=== PATIENT | male | born 1985 | race African-American/Black ===

== ENCOUNTER 2017-02-14 10:19 | Emergency (ER) | payer OTHER ==
--- NOTE | 2017-02-14 10:36 | ER Document Report ---
ED Medical Screen (RME) - General Chief Complaint: Chest Pain Stated Complaint: CHEST PAIN Time Seen by Provider: 02/14/17 10:35 Notes: Patient states he has had some intermittent left-sided chest pain. He states currently he does not have any chest pain. He states he does have some occasional altered sensations in the left arm. He denies any chronic medical conditions. No surgeries. TRAVEL OUTSIDE OF THE [place] IN LAST 30 DAYS: No - Related Data Allergies/Adverse Reactions: No Known Allergies Allergy (Verified 03/25/16 14:45) Past Medical History Renal/ Medical History: Denies: Hx Peritoneal Dialysis Musculoskeltal Medical History: Reports Hx Musculoskeletal Deformity, Reports Hx Musculoskeletal Trauma Psychiatric Medical History: Reports: Hx Anxiety, Hx Depression - Immunizations Immunizations up to date: Yes Hx Diphtheria, Pertussis, Tetanus Vaccination: Yes - 2014 Physical Exam - Vital signs Vitals: Temp Pulse Resp BP Pulse Ox 98.0 F 67 16 143/89 H 98 02/14/17 10:26 02/14/17 10:26 02/14/17 10:26 02/14/17 10:26 02/14/17 10:26 Course - Vital Signs Vital signs: Temp Pulse Resp BP Pulse Ox 98.0 F 67 16 143/89 H 98 02/14/17 10:26 02/14/17 10:26 02/14/17 10:26 02/14/17 10:26 02/14/17 10:26
[2017-02-14 11:01] LABS: ABSOLUTE EOSINOPHILS # (AUTO) 0.3 10^3/uL (0.0-0.6); ABSOLUTE LYMPHOCYTES (AUTO) 1.9 10^3/uL (0.5-4.7); ABSOLUTE MONOCYTES (AUTO) 0.5 10^3/uL (0.1-1.4); ABSOLUTE NEUT (AUTO) 3.8 10^3/uL (1.7-8.2); BASOPHILS % (AUTO) 0.6 % (0-2); EOSINOPHILS % (AUTO) 5.2 % (0-6); HEMATOCRIT 41.4 % (37.9-51.0); HEMOGLOBIN 14.5 g/dL (13.5-17.0); HGB HCT DIFFERENCE 2.1; LYMPHOCYTES % (AUTO) 28.3 % (13-45); MEAN CORPUSCULAR HEMOGLOBIN 30.4 pg (27.0-33.4); MEAN CORPUSCULAR HGB CONC 35.1 g/dL (32.0-36.0); MEAN CORPUSCULAR VOLUME 87 fl (80-97); MONOCYTES % (AUTO) 7.8 % (3-13); RED BLOOD COUNT 4.79 10^6/uL (4.35-5.55); RED CELL DISTRIBUTION WIDTH 13.5 % (11.5-14.0); SEGMENTED NEUTROPHILS % (AUTO) 58.1 % (42-78); WHITE BLOOD COUNT 6.6 10^3/uL (4.0-10.5)
[2017-02-14 11:26] LABS: ALANINE AMINOTRANSFERASE 42 U/L (21-72); ALBUMIN 4.3 g/dL (3.5-5.0); ALKALINE PHOSPHATASE 72 U/L (38-126); ANION GAP 11 (5-19); ASPARTATE AMINO TRANSFERASE 24 U/L (17-59); BILIRUBIN,DIRECT 0.2 mg/dL (0.0-0.4); BILIRUBIN,TOTAL 0.4 mg/dL (0.2-1.3); BLOOD UREA NITROGEN 17 mg/dL (7-20); CALCIUM 9.4 mg/dL (8.4-10.2); CARBON DIOXIDE 26 mmol/L (22-30); CHLORIDE 106 mmol/L (98-107); CREATININE RESULT 1.04 mg/dL (0.52-1.25); GLUCOSE 91 mg/dL (75-110); POTASSIUM 4.3 mmol/L (3.6-5.0); SODIUM 142.8 mmol/L (137-145); TOTAL PROTEIN 7.2 g/dL (6.3-8.2)
--- NOTE | 2017-02-14 11:37 | ER Document Report ---
ED General - General Mode of Arrival: Ambulatory Information source: Patient TRAVEL OUTSIDE OF THE [place] IN LAST 30 DAYS: No <ADA AQUINO - Last Filed: 02/14/17 11:32> <RIGO HANCOCK - Last Filed: 02/14/17 13:44> - General Chief Complaint: Chest Pain Stated Complaint: CHEST PAIN Time Seen by Provider: 02/14/17 10:35 Notes: Patient is a 31-year-old male who presents to the emergency department today with complaints of reproducible chest wall pain. Patient states he has been having this pain intermittently for the last month or two. Patient states it sometimes wakes him up from sleep. Patient states when the pain sets in, it "locks his body up" and he states that he is "unable to move, he feels frozen". Patient denies any precipitating factors. Patient denies nausea with this pain. (ADA AQUINO) - Related Data Allergies/Adverse Reactions: No Known Allergies Allergy (Verified 03/25/16 14:45) Past Medical History - General Information source: Patient, [facility] Records - Social History Smoking Status: Current Every Day Smoker Cigarette use (# per day): Yes Frequency of alcohol use: Occasional Drug Abuse: None Lives with: Family Family History: Malignancy Patient has suicidal ideation: No Patient has homicidal ideation: No Musculoskeltal Medical History: Reports Hx Musculoskeletal Deformity, Reports Hx Musculoskeletal Trauma Psychiatric Medical History: Reports: Hx Anxiety, Hx Depression Surgical Hx: Negative - Immunizations Immunizations up to date: Yes Hx Diphtheria, Pertussis, Tetanus Vaccination: Yes - 2014 <ADA AQUINO - Last Filed: 02/14/17 11:32> Review of Systems - Review of Systems Constitutional: No symptoms reported EENT: No symptoms reported Cardiovascular: See HPI, Chest pain - reproducible Respiratory: No symptoms reported Gastrointestinal: denies: Nausea Genitourinary: No symptoms reported Male Genitourinary: No symptoms reported Musculoskeletal: No symptoms reported Skin: No symptoms reported Hematologic/Lymphatic: No symptoms reported Neurological/Psychological: No symptoms reported -: Yes All other systems reviewed and negative <ADA AQUINO - Last Filed: 02/14/17 11:32> Physical Exam <ADA AQUINO - Last Filed: 02/14/17 11:32> <RIGO HANCOCK - Last Filed: 02/14/17 13:44> - Vital signs Vitals: Temp Pulse Resp BP Pulse Ox 98.0 F 67 16 143/89 H 98 02/14/17 10:26 02/14/17 10:26 02/14/17 10:26 02/14/17 10:26 02/14/17 10:26 - Notes Notes: Physical Exam: General: Alert, appears well. HEENT: Normocephalic. Atraumatic. PERRL. Extraocular movements intact. Oropharynx clear. Neck: Supple. Non-tender. Respiratory: No respiratory distress. Reproducible chest wall tenderness with palpation. Clear and equal breath sounds bilaterally. Cardiovascular: Regular rate and rhythm. Abdominal: Normal Inspection. Non-tender. No distension. Normal Bowel Sounds. Back: Non-tender. No deformity or step off. Extremities: Moves all four extremities. Musculoskeletal: Left trapezius and posterior cervical musculature tenderness with palpation. Left deltoid tenderness to palpation. Left pectoralis musculature tenderness to palpation. Left anterior lateral rib tenderness with palpation. No right-sided tenderness. Neurological: Normal cognition. AAOx4. Normal speech. Psychological: Normal affect. Normal Mood. Skin: Warm. Dry. Normal color. (ADA AQUINO) Course - Laboratory Result Diagrams: 02/14/17 10:40 02/14/17 10:40 <ADA AQUINO - Last Filed: 02/14/17 11:32> - Laboratory Result Diagrams: 02/14/17 10:40 02/14/17 10:40 - EKG Interpretation by Ma EKG shows normal: Sinus rhythm, [place], Intervals, QRS Complexes. abnormal: ST-T Waves - ST elevation, probably early repolarization Rate: Normal - 69 Rhythm: NSR P Waves: LAE <RIGO HANCOCK - Last Filed: 02/14/17 13:44> - Vital Signs Vital signs: Temp Pulse Resp BP Pulse Ox 98.0 F 67 16 143/89 H 98 02/14/17 10:26 02/14/17 10:26 02/14/17 10:31 02/14/17 10:26 02/14/17 10:26 - Laboratory Laboratory results interpreted by me: 02/14/17 10:40 Creatine Kinase 190 H Discharge <ADA AQUINO - Last Filed: 02/14/17 11:32> <RIGO HANCOCK - Last Filed: 02/14/17 13:44> - Discharge Clinical Impression: Chest wall pain Strain of left trapezius muscle Qualifiers: Encounter type: initial encounter Qualified Code(s): S46.812A - Strain of other muscles, fascia and tendons at shoulder and upper arm level, left arm, initial encounter Condition: Stable Disposition: HOME, SELF-CARE Additional Instructions: Chest Wall Pain Your chest pain has been diagnosed as coming from the chest wall. This is often caused by straining the muscles or joints in the chest during physical activity, direct trauma, coughing, or vigorous vomiting. Persons with arthritis are especially prone to this type of pain, due to inflammation of the cartilage joints near the breast bone. Occasionally, no cause can be found. Rest from strenuous physical activity. This kind of chest pain is usually made worse by movement of the chest. Depending on the symptoms, we may prescribe medicine for pain, muscle relaxation, and antiinflammatory effects. If the pain is new, and seems to be due to muscle strain, cold packs can help. Otherwise, apply gentle warmth to the painful area for 15 minutes every hour or two. You should contact the doctor immediately if things change. Further evaluation is needed if you develop a fever or cough, if the nature of the pain changes, or if you become short of breath. The pain you are experiencing seems to be coming from the muscles around your left shoulder and chest wall. Try taking 2 Aleve twice daily or 800 mg of ibuprofen every 8 hours for the next several days. Resting the left upper extremity will help. Moist heat will probably help to feel better. Follow-up with a local medical doctor if not improving. RETURN TO THE EMERGENCY ROOM IF ANY NEW OR WORSENING SYMPTOMS. Scribe Attestation: 02/14/17 13:44 I personally performed the services described in the documentation, reviewed and edited the documentation which was dictated to the scribe in my presence, and it accurately records my words and actions. (RIGO HANCOCK) Scribe Documentation - Scribe Written by Kat:: Kat Newell, 02/14/2017 [id number] acting as scribe for :: Cristofer <ADA AQUINO - Last Filed: 02/14/17 11:32>
[2017-02-14 11:53] LABS: ADD ON TESTING BLD IN LAB ACKNOWLEDGE
[2017-02-14 12:06] LABS: CREATINE KINASE 190 U/L (55-170)
[2017-02-14 12:34] LABS: ADD ON TESTING BLD IN LAB ACKNOWLEDGE
[2017-02-14 12:50] LABS: C-REACTIVE PROTEIN < 5.0 mg/L (<10.0)
[2017-02-14 13:53] VITALS: BP 122/60
--- NOTE | 2017-02-14 21:29 | EKG REPORT ---
SEVERITY:- ABNORMAL ECG - SINUS RHYTHM PROBABLE LEFT ATRIAL ABNORMALITY ST ELEVATION SUGGESTS PERICARDITIS : Confirmed by: Fer Gray 14-Feb-2017 21:28:57
== END 2017-02-14 13:53 | disposition home or self-care (01) ==
LOC: ER 10:19
DX: S46.812A Strain of other muscles, fascia and tendons at shoulder and upper arm level, left arm, initial encounter (principal); R07.9 Chest pain, unspecified; F17.210 Nicotine dependence, cigarettes, uncomplicated; X58.XXXA Exposure to other specified factors, initial encounter
CPT/HCPCS: 36415; 80053; 82550; 84484; 85025; 85652; 86140; 93005; 93010; 99285